=== PATIENT | male | born 1950 | race Asian ===

== ENCOUNTER 2016-11-07 16:15 | Inpatient (IN) | payer BC ==
[~2016-11-07] VITALS: Ht 167.6 cm; Wt 64.0 kg
[2016-11-07 16:15] VITALS: BP_SYST 116
[~2016-11-07 16:15] MED LIST: BACL20TA PO; GABA-331 PO; INSU100V9 SUBCUT; OXYB5TAB11 PO; SIMV10TA6 PO; SULF-261 PO
[2016-11-07 16:57] LABS: BILIRUBIN,URINE NEGATIVE (NEGATIVE); BLOOD, URINE 3+ (NEGATIVE); CLARITY/URINE HAZY (CLEAR); COLOR,URINE YELLOW (YELLOW); GLUCOSE,URINE NEGATIVE (NEGATIVE); KETONES,URINE NEGATIVE (NEGATIVE); LEUKOCYTE ESTERASE ,URINE 2+ (NEGATIVE); NITRITE, URINE NEGATIVE (NEGATIVE); PH,URINE 5.5 (5.0-8.0); PROTEIN URINE 2+ (NEGATIVE); UROBILINOGEN,URINE 0.2 (0.2-1.0)
[2016-11-07] MEDS ORDERED: DORZ10DR8 OP (16:58)
[2016-11-07] MEDS ORDERED: HYDR-3606 PO (16:58)
[2016-11-07] MEDS ORDERED: LISI-600 PO (16:58)
[2016-11-07] MEDS ORDERED: LATA2.5D6 OP (16:58)
[2016-11-07] MEDS ORDERED: MELO15TA13 PO (16:58)
[2016-11-07] MEDS ORDERED: GLU500 PO (16:58)
[2016-11-07] MEDS ORDERED: AMLO5TAB4 PO (16:58)
[2016-11-07 17:03] LABS: HEMATOCRIT 34.9 % (36-54); HEMOGLOBIN 11.6 g/dL (14.0-18.0); MEAN CORPUSCULAR HEMOGLOBIN 30 pg (27-31); MEAN CORPUSCULAR HGB CONC 33 % (32-36); MEAN CORPUSCULAR VOLUME 90 fL (79.0-98.0); PLATELET COUNT (AUTO) 97 K/uL (130-430); RED BLOOD CELL COUNT(AUTO) 3.87 MIL/uL (4.2-6.2)
[2016-11-07 17:11] LABS: CALCIUM 7.6 mg/dL (8.4-11.0); CREATININE 2.19 mg/dL (0.55-1.30); POTASSIUM 4.8 mmol/L (3.5-5.1)
[2016-11-07 17:18] LABS: INR 1.2 (0.80-1.20); PROTHROMBIN TIME 12.5 SECS (9.5-12.5)
[2016-11-07 17:19] LABS: BACTERIA,URINE MANY /HPF (None Seen); WBC,URINE >100 /HPF (0-3)
[2016-11-07 17:20] LABS: MUCUS,URINE 1+ /LPF (None Seen); TOTAL BILIRUBIN 0.5 mg/dL (0.0-1.0)
[2016-11-07 17:21] LABS: ALBUMIN 3.1 g/dL (3.4-4.8); TOTAL PROTEIN, SERUM 6.2 g/dL (6.4-8.3)
[2016-11-07 17:29] LABS: ATYPICAL LYMPHOCYTES % 3 % (0-0); BAND % (MANUAL) 37 % (0-6); BASOPHILS % (MANUAL) 0 % (0-2); EOSINOPHILS % (MANUAL) 0 % (0-7); LYMPHOCYTES % (MANUAL) 2 % (20-46); METAMYELOCYTES % 2 % (0-0); MONOCYTES % (MANUAL) 0 % (0-11); MYELOCYTES % 1 % (0-0)
[2016-11-07] MEDS ORDERED: cefTRIAXone 1 GM IVPB PREMIX 50 ML IV SCH (17:30)
[2016-11-07] MEDS ORDERED: NS 1000 ML BAG IV ONE (17:30)
[2016-11-07 18:53] VITALS: BP_SYST 110
[2016-11-07] MEDS ORDERED: NACL 0.9% 1,000 ML IV SCH (21:00)
[2016-11-07] MEDS ORDERED: LEVOFLOXACIN 500 MG/D5W 100 ML IV SCH (21:00)
[2016-11-07] MEDS ORDERED: LEVOFLOXACIN 500 MG/D5W 100 ML IV ONE (21:07)
[2016-11-07 21:25] VITALS: BP_SYST 114
[2016-11-07] MEDS: ENOXAPARIN SODIUM 40 MG/0.4 ML SYRINGE SUBCUT SCH (21:44)
[2016-11-07] MEDS ORDERED: ACETAMINOPHEN 325 MG TABLET PO PRN (21:45)
[2016-11-07] MEDS: INSULIN REGULAR, HUMAN 100 UNITS/ML, 10 ML VIAL (novoLIN R) SUBCUT PRN (21:49)
[2016-11-07 21:59] VITALS: BP_SYST 113
[2016-11-07] MEDS: NACL 0.9% 1,000 ML IV SCH (22:29)
[2016-11-08 00:16] VITALS: BP_SYST 98
[2016-11-08] MEDS: traMADol HCL HCL 50 MG TABLET (ULTRAM) PO PRN ×2 (01:03→08:08)
[2016-11-08 04:28] VITALS: BP_SYST 104
[2016-11-08 04:39] VITALS: BP_SYST 123
[2016-11-08 06:59] LABS: HEMATOCRIT 32.4 % (36-54); HEMOGLOBIN 10.9 g/dL (14.0-18.0); MEAN CORPUSCULAR HEMOGLOBIN 30 pg (27-31); MEAN CORPUSCULAR HGB CONC 34 % (32-36); MEAN CORPUSCULAR VOLUME 89 fL (79.0-98.0); PLATELET COUNT (AUTO) 66 K/uL (130-430); RED BLOOD CELL COUNT(AUTO) 3.63 MIL/uL (4.2-6.2); RED CELL DISTRIBUTION WIDTH 12.7 % (9.0-15.0)
[2016-11-08 07:11] LABS: ALBUMIN 2.8 g/dL (3.4-4.8); CREATININE 1.36 mg/dL (0.55-1.30); POTASSIUM 3.7 mmol/L (3.5-5.1); TOTAL BILIRUBIN 0.4 mg/dL (0.0-1.0); TOTAL PROTEIN, SERUM 6.1 g/dL (6.4-8.3)
[2016-11-08 07:30] LABS: WHITE BLOOD COUNT (AUTO) 15.4 K/uL (4.8-10.8)
[2016-11-08] MEDS: NACL 0.9% 1,000 ML IV SCH ×2 (07:54→16:53)
[2016-11-08 07:58] VITALS: BP_SYST 116
[2016-11-08] MEDS: cefTRIAXone 1 GM in D5W 50 ML IV SCH (09:18)
[2016-11-08 10:11] LABS: ATYPICAL LYMPHOCYTES % 0 % (0-0); BAND % (MANUAL) 23 % (0-6); BASOPHILS % (MANUAL) 0 % (0-2); EOSINOPHILS % (MANUAL) 5 % (0-7); LYMPHOCYTES % (MANUAL) 7 % (20-46); MONOCYTES % (MANUAL) 2 % (0-11)
[2016-11-08] MEDS ORDERED: HYDROcodone/ACETAMIN 5-325 MG TAB (NORCO/ VICODIN) PO SCH (10:30)
[2016-11-08] MEDS: INSULIN REGULAR, HUMAN 100 UNITS/ML, 10 ML VIAL (novoLIN R) SUBCUT PRN ×3 (11:27→22:04)
[2016-11-08 12:40] VITALS: BP_SYST 121
[2016-11-08] MEDS ORDERED: MELOXICAM 7.5 MG TABLET PO ONE (12:45)
[2016-11-08] MEDS: GABAPENTIN 300 MG CAPSULE PO SCH ×3 (12:52→21:42)
[2016-11-08] MEDS: BACLOFEN 10 MG TABLET PO SCH ×3 (12:52→21:42)
[2016-11-08 16:36] VITALS: BP_SYST 127
[2016-11-08] MEDS ORDERED: LEVOFLOXACIN 250 MG/D5W 50 ML IV SCH (21:00)
[2016-11-08] MEDS: ENOXAPARIN SODIUM 40 MG/0.4 ML SYRINGE SUBCUT SCH (21:43)
[2016-11-08] MEDS: SIMVASTATIN 20 MG TABLET PO SCH (21:45)
[2016-11-09 01:33] VITALS: BP_SYST 102
[2016-11-09] MEDS: NACL 0.9% 1,000 ML IV SCH ×2 (03:05→13:18)
[2016-11-09 05:46] VITALS: BP_SYST 101
[2016-11-09 07:25] LABS: ALBUMIN 2.4 g/dL (3.4-4.8); CALCIUM 7.9 mg/dL (8.4-11.0); CREATININE 0.89 mg/dL (0.55-1.30); POTASSIUM 3.3 mmol/L (3.5-5.1); TOTAL BILIRUBIN 0.3 mg/dL (0.0-1.0); TOTAL PROTEIN, SERUM 5.8 g/dL (6.4-8.3)
[2016-11-09] MEDS ORDERED: DORZOLAMIDE 2% OPHTHALMIC SOLN 5ML OP SCH (07:30)
[2016-11-09 07:31] LABS: BASOPHILS % (AUTO) 0.1 % (0.0-2.0); EOSINOPHILS # (AUTO) 0.2 K/uL (0.0-0.4); EOSINOPHILS % (AUTO) 1.5 % (0.0-4.0); HEMATOCRIT 29.1 % (36-54); HEMOGLOBIN 9.9 g/dL (14.0-18.0); LYMPHOCYTES # (AUTO) 0.7 K/uL (1.0-5.5); LYMPHOCYTES % (AUTO) 5.7 % (20.5-51.5); MEAN CORPUSCULAR HEMOGLOBIN 30 pg (27-31); MEAN CORPUSCULAR HGB CONC 34 % (32-36); MEAN CORPUSCULAR VOLUME 89 fL (79.0-98.0); MONOCYTES # (AUTO) 0.7 K/uL (0.0-1.0); NEUTROPHILS # (AUTO) 10.8 K/uL (1.8-7.7); NEUTROPHILS % (AUTO) 86.7 % (40.0-70.0); PLATELET COUNT (AUTO) 50 K/uL (130-430); RED BLOOD CELL COUNT(AUTO) 3.27 MIL/uL (4.2-6.2); RED CELL DISTRIBUTION WIDTH 12.8 % (9.0-15.0); WHITE BLOOD COUNT (AUTO) 12.4 K/uL (4.8-10.8)
[2016-11-09 08:00] VITALS: BP_SYST 152
[2016-11-09] MEDS: DORZOLAMIDE 2% OPHTHALMIC SOLN 5ML OP SCH ×2 (09:00→20:05)
[2016-11-09] MEDS: cefTRIAXone 1 GM in D5W 50 ML IV SCH (09:14)
[2016-11-09] MEDS: LATANOPROST 2.5 ML DROPS (XALATAN) OP SCH (09:14)
[2016-11-09] MEDS: OXYBUTYNIN CHLORIDE 5 MG TABLET PO SCH (09:15)
[2016-11-09] MEDS: GABAPENTIN 300 MG CAPSULE PO SCH ×4 (09:15→20:53)
[2016-11-09] MEDS: MELOXICAM 7.5 MG TABLET PO SCH (09:15)
[2016-11-09] MEDS: amLODIPine BESYLATE 5 MG TABLET PO SCH (09:16)
[2016-11-09] MEDS: BACLOFEN 10 MG TABLET PO SCH ×4 (09:21→20:53)
[2016-11-09] MEDS: INSULIN REGULAR, HUMAN 100 UNITS/ML, 10 ML VIAL (novoLIN R) SUBCUT PRN ×3 (12:05→20:58)
[2016-11-09 12:25] VITALS: BP_SYST 117
[2016-11-09 16:24] VITALS: BP_SYST 114
[2016-11-09] MEDS ORDERED: GENTAMICIN 100 mg/50 mL NS 50 ML IV ONE (19:00)
[2016-11-09 20:00] VITALS: BP_SYST 122
[2016-11-09] MEDS: POTASSIUM CHLORIDE 20 MEQ TAB.PRT.SR PO SCH (20:52)
[2016-11-09] MEDS: SIMVASTATIN 20 MG TABLET PO SCH (20:53)
[2016-11-09] MEDS: ENOXAPARIN SODIUM 40 MG/0.4 ML SYRINGE SUBCUT SCH (20:53)
[2016-11-10 00:50] VITALS: BP_SYST 122
[2016-11-10] MEDS: NACL 0.9% 1,000 ML IV SCH (01:40)
[2016-11-10 05:12] LABS: BASOPHILS % (AUTO) 0.1 % (0.0-2.0); EOSINOPHILS # (AUTO) 0.4 K/uL (0.0-0.4); EOSINOPHILS % (AUTO) 2.8 % (0.0-4.0); HEMATOCRIT 33.3 % (36-54); HEMOGLOBIN 11.5 g/dL (14.0-18.0); LYMPHOCYTES # (AUTO) 1.2 K/uL (1.0-5.5); MEAN CORPUSCULAR HEMOGLOBIN 31 pg (27-31); MEAN CORPUSCULAR HGB CONC 34 % (32-36); MEAN CORPUSCULAR VOLUME 90 fL (79.0-98.0); MONOCYTES # (AUTO) 0.8 K/uL (0.0-1.0); MONOCYTES % (AUTO) 5.7 % (1.7-9.3); NEUTROPHILS # (AUTO) 11.1 K/uL (1.8-7.7); NEUTROPHILS % (AUTO) 82.4 % (40.0-70.0); PLATELET COUNT (AUTO) 64 K/uL (130-430); RED CELL DISTRIBUTION WIDTH 13.3 % (9.0-15.0); WHITE BLOOD COUNT (AUTO) 13.5 K/uL (4.8-10.8)
[2016-11-10 05:26] LABS: CALCIUM 8.8 mg/dL (8.4-11.0); CREATININE 0.84 mg/dL (0.55-1.30); THYROID STIMULATING HORMONE 1.89 uIu/mL (0.34-4.82)
[2016-11-10 05:57] VITALS: BP_SYST 107
[2016-11-10 06:33] LABS: IRON (SERUM) 32 mcg/dL (59-158); TOTAL IRON BIND. CAPACITY 202 ug/dL (250-450)
[2016-11-10 08:00] VITALS: BP_SYST 149
[2016-11-10] MEDS: OXYBUTYNIN CHLORIDE 5 MG TABLET PO SCH (08:35)
[2016-11-10] MEDS: BACLOFEN 10 MG TABLET PO SCH ×4 (08:35→21:42)
[2016-11-10] MEDS: MELOXICAM 7.5 MG TABLET PO SCH (08:36)
[2016-11-10] MEDS: amLODIPine BESYLATE 5 MG TABLET PO SCH (08:36)
[2016-11-10] MEDS: GABAPENTIN 300 MG CAPSULE PO SCH ×4 (08:36→21:43)
[2016-11-10] MEDS: POTASSIUM CHLORIDE 20 MEQ TAB.PRT.SR PO SCH (08:37)
[2016-11-10] MEDS: LATANOPROST 2.5 ML DROPS (XALATAN) OP SCH (08:37)
[2016-11-10] MEDS: cefTRIAXone 1 GM in D5W 50 ML IV SCH (08:37)
[2016-11-10] MEDS: DORZOLAMIDE 2% OPHTHALMIC SOLN 5ML OP SCH (08:37)
[2016-11-10] MEDS: INSULIN REGULAR, HUMAN 100 UNITS/ML, 10 ML VIAL (novoLIN R) SUBCUT PRN ×3 (11:53→21:48)
[2016-11-10 14:19] VITALS: BP_SYST 159
[2016-11-10] MEDS ORDERED: ACYCLOVIR 400 MG TABLET PO ONE (18:15)
[2016-11-10] MEDS: ACYCLOVIR 30 GM OINT TP SCH ×2 (18:46→21:43)
[2016-11-10 18:50] VITALS: BP_SYST 130
[2016-11-10 19:30] VITALS: BP_SYST 144
[2016-11-10] MEDS: ENOXAPARIN SODIUM 40 MG/0.4 ML SYRINGE SUBCUT SCH (21:41)
[2016-11-10] MEDS: SIMVASTATIN 20 MG TABLET PO SCH (21:42)
[2016-11-10] MEDS: ACYCLOVIR 400 MG TABLET PO SCH (21:42)
[2016-11-10] MEDS: MULTIVITS,CA,MINERALS/IRON/FA 1 TABLET PO SCH (21:42)
[2016-11-11 01:25] VITALS: BP_SYST 124
[2016-11-11] MEDS: NACL 0.9% 1,000 ML IV SCH (02:50)
[2016-11-11] MEDS: ACYCLOVIR 400 MG TABLET PO SCH ×2 (05:34→14:59)
[2016-11-11] MEDS: ACYCLOVIR 30 GM OINT TP SCH ×4 (05:35→18:00)
[2016-11-11 06:12] VITALS: BP_SYST 159
[2016-11-11] MEDS: cefTRIAXone 1 GM in D5W 50 ML IV SCH (08:18)
[2016-11-11 08:52] VITALS: BP_SYST 157
[2016-11-11 09:44] LABS: FOLATE (FOLIC ACID) 11.8 ng/mL (>3.0)
[2016-11-11] MEDS: MULTIVITS,CA,MINERALS/IRON/FA 1 TABLET PO SCH (09:46)
[2016-11-11] MEDS: POTASSIUM CHLORIDE 20 MEQ TAB.PRT.SR PO SCH (09:46)
[2016-11-11] MEDS: OXYBUTYNIN CHLORIDE 5 MG TABLET PO SCH (09:46)
[2016-11-11] MEDS: MELOXICAM 7.5 MG TABLET PO SCH (09:47)
[2016-11-11] MEDS: GABAPENTIN 300 MG CAPSULE PO SCH ×3 (09:47→16:27)
[2016-11-11] MEDS: BACLOFEN 10 MG TABLET PO SCH ×3 (09:47→16:27)
[2016-11-11] MEDS: DORZOLAMIDE 2% OPHTHALMIC SOLN 5ML OP SCH (09:48)
[2016-11-11] MEDS: amLODIPine BESYLATE 5 MG TABLET PO SCH (09:48)
[2016-11-11] MEDS: LATANOPROST 2.5 ML DROPS (XALATAN) OP SCH (09:49)
[2016-11-11] MEDS ORDERED: HYDROmorphone 1 MG INJ. 1 MG/ML AMPUL ONE (10:36)
[2016-11-11] MEDS ORDERED: metFORMIN HCL 500 MG TABLET PO ONE (12:00)
[2016-11-11 12:12] VITALS: BP_SYST 142
[2016-11-11] MEDS: INSULIN REGULAR, HUMAN 100 UNITS/ML, 10 ML VIAL (novoLIN R) SUBCUT PRN (12:30)
[2016-11-11 15:50] VITALS: BP_SYST 136
[2016-11-11 16:50] VITALS: BP_SYST 136
[2016-11-11] MEDS ORDERED: metFORMIN HCL 500 MG TABLET PO SCH (18:00)
== END 2016-11-11 18:45 | disposition home health service (06) | DRG 871 ==
LOC: SED 16:17 → STU 17:41 → SMU 11-08 12:44
PROVIDERS: ADMIT Internal Medicine; ATTEND Internal Medicine
DX: A41.51 Sepsis due to Escherichia coli [E. coli] (principal); R65.21 Severe sepsis with septic shock; N17.0 Acute kidney failure with tubular necrosis; N39.0 Urinary tract infection, site not specified; E44.1 Mild protein-calorie malnutrition; G82.20 Paraplegia, unspecified; E87.1 Hypo-osmolality and hyponatremia; I10 Essential (primary) hypertension; E11.9 Type 2 diabetes mellitus without complications; N31.9 Neuromuscular dysfunction of bladder, unspecified; G89.4 Chronic pain syndrome; E78.5 Hyperlipidemia, unspecified; B00.1 Herpesviral vesicular dermatitis; Z68.22 Body mass index [BMI] 22.0-22.9, adult; Z79.899 Other long term (current) drug therapy; Z74.01 Bed confinement status; Z88.6 Allergy status to analgesic agent; Z79.01 Long term (current) use of anticoagulants; Z79.4 Long term (current) use of insulin; Z93.3 Colostomy status
CPT/HCPCS: 36415; 71010; 76770; 80048; 80053; 80061; 81000-TC; 82607; 82746; 82962; 83036; 83540-TC; 83550-TC; 83605; 84443-TC; 85007; 85025; 85027; 85610-TC; 85730-TC; 87040-TC; 87086; 87186-TC; 93005; 96361; 96365; 99291; A4409; A5061; J0696; J1170; J1580; J1650; J1815; J1956; J7030; J7040; J7060

== ENCOUNTER 2022-01-11 12:54 | Emergency (ER) | payer BC ==
[~2022-01-11] VITALS: Ht 167.6 cm; Wt 54.4 kg
[~2022-01-11 12:54] MED LIST changes: +AMLO5TAB4 PO; +DORZ10DR8 OP; +GLU500 PO; +HYDR-3607 PO; -INSU100V9 SUBCUT; +LISI20TA30 PO; -OXYB5TAB11 PO; +OXYB5TAB18 PO; -SIMV10TA6 PO; +SIMV10TA97 PO; -SULF-261 PO; +XALEYE OP
[2022-01-11 13:03] VITALS: BP_SYST 155
--- NOTE | 2022-01-11 16:48 | NUR ---
REPORT TO IRENA BAUTISTA. PT VSS. NAD NOTED. GS MANEUVER TO GRISELDA. BOTH SIDE RAILS UP. AT BEDSIDE.
--- NOTE | 2022-01-11 16:50 | NUR ---
Assumed care of pt who was brought from home by his c/o suprapubic catheter pain and hematuria. 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 Pt had catheter placed more than ten years ago. Pt states home health nurse changed catheter 10 days ago and it has never felt comfortable. They noticed blood in the tian bag and blood dripping from the penis. Pt is A&Ox4, calm and cooperative in no acute distress. Will cont to monitor and provide care as ordered.
--- NOTE | 2022-01-11 17:01 | NUR ---
ER Dr. English at bedside examining patient.
[2022-01-11] MEDS ORDERED: CIPR500T5 PO (17:52)
[2022-01-11 18:10] LABS: BILIRUBIN,URINE NEGATIVE (NEGATIVE); BLOOD, URINE 3+ (NEGATIVE); CLARITY/URINE CLEAR (CLEAR); COLOR,URINE YELLOW (YELLOW); GLUCOSE,URINE 3+ (NEGATIVE); KETONES,URINE NEGATIVE (NEGATIVE); LEUKOCYTE ESTERASE ,URINE 1+ (NEGATIVE); NITRITE, URINE POSITIVE (NEGATIVE); PH,URINE 5.5 (5.0-8.0); PROTEIN URINE 1+ (NEGATIVE); UROBILINOGEN,URINE 0.2 (0.2-1.0)
[2022-01-11 18:25] LABS: BACTERIA,URINE MODERATE /HPF (None Seen); MUCUS,URINE None Seen /LPF (None Seen)
--- NOTE | 2022-01-11 18:43 | NUR ---
Patient given written and verbal discharge instructions and verbalizes understanding. ER Dr. Tameka LEWIS discussed with patient the results and treatment provided. Patient in stable condition. ID arm band removed. IV catheter removed intact and dressing applied, no active bleeding. Rx of Ciproflaxacin given. Patient educated on pain management and to follow up with PMD. Pain Scale 0/10. Opportunity for questions provided and answered. Medication side effect fact sheet provided.
== END 2022-01-11 18:42 | disposition home or self-care (01) ==
LOC: SED 12:54
DX: T83.098A Other mechanical complication of other urinary catheter, initial encounter (principal); N39.0 Urinary tract infection, site not specified; R10.30 Lower abdominal pain, unspecified; E11.9 Type 2 diabetes mellitus without complications; I10 Essential (primary) hypertension; Z88.6 Allergy status to analgesic agent; Z79.899 Other long term (current) drug therapy
CPT/HCPCS: 81000; 87086; 99283

== ENCOUNTER 2022-03-20 18:34 | Emergency (ER) | payer BC ==
[~2022-03-20] VITALS: Ht 170.2 cm; Wt 49.9 kg
[~2022-03-20 18:34] MED LIST changes: +CIPR500T5 PO
[2022-03-20 19:47] VITALS: BP_SYST 107
[2022-03-20 23:26] LABS: BILIRUBIN,URINE NEGATIVE (NEGATIVE); BLOOD, URINE 2+ (NEGATIVE); CLARITY/URINE CLEAR (CLEAR); COLOR,URINE YELLOW (YELLOW); GLUCOSE,URINE 3+ (NEGATIVE); KETONES,URINE NEGATIVE (NEGATIVE); LEUKOCYTE ESTERASE ,URINE 2+ (NEGATIVE); NITRITE, URINE POSITIVE (NEGATIVE); PH,URINE 5.5 (5.0-8.0); PROTEIN URINE 1+ (NEGATIVE); UROBILINOGEN,URINE 0.2 (0.2-1.0)
[2022-03-20 23:45] LABS: BACTERIA,URINE FEW /HPF (None Seen); RBC,URINE 20-50 /HPF (0-3); WBC,URINE >100 /HPF (0-3)
[2022-03-20 23:46] LABS: MUCUS,URINE 1+ /LPF (None Seen)
[2022-03-20] MEDS ORDERED: CIPR500T5 PO (23:58)
[2022-03-21 00:32] VITALS: BP_SYST 107
== END 2022-03-21 00:32 | disposition home or self-care (01) ==
LOC: SED 18:34
DX: T83.518A Infection and inflammatory reaction due to other urinary catheter, initial encounter (principal); N30.91 Cystitis, unspecified with hematuria; R50.9 Fever, unspecified; E11.9 Type 2 diabetes mellitus without complications; I10 Essential (primary) hypertension; Z88.6 Allergy status to analgesic agent; Z79.899 Other long term (current) drug therapy
CPT/HCPCS: 81000; 87086; 99284